=== PATIENT | male | born 1980 | race Caucasian/White ===

== ENCOUNTER 2020-12-26 02:44 | Observation (INO) ==
[2020-12-26 03:13] LABS: Basophils # 0.1 K/mcL (0.0-0.2); Basophils % 0.5 %; Eosinophils # 0.7 K/mcL (0.0-0.6); Eosinophils % 6.4 %; Hematocrit 47.7 % (37.5-50.1); Hemoglobin 15.9 g/dL (12.9-16.9); Immature Granulocytes % 0.3 % (0-4); Lymphocytes # 4.5 K/mcL (0.6-4.6); Lymphocytes % 42.4 %; Mean Corpuscular HGB Conc 33.3 g/dL (31.6-35.5); Mean Corpuscular Hemoglobin 30.5 pg (28.0-33.3); Mean Corpuscular Volume 91.6 fL (83.0-100.0); Mean Platelet Volume 10.5 fL (9.4-12.4); Monocytes # 1.2 K/mcL (0.0-1.3); Monocytes % 11.1 %; Neutrophils # 4.2 K/mcL (1.6-8.9); Platelet Count 240 K/mcL (140-400); Red Blood Count 5.21 M/mcL (4.19-5.50); Red Cell Distribution Width 12.9 % (11.5-14.5); Segmented Neutrophils % 39.3 %; White Blood Count 10.6 K/mcL (4.3-11.1)
[2020-12-26 03:44] LABS: BUN/Creatinine Ratio 13 (6-26); Blood Urea Nitrogen 14 mg/dL (6-20); Calcium 8.7 mg/dL (8.6-10.3); Carbon Dioxide 24 mEq/L (23-29); Chloride 107 mEq/L (98-107); Glucose 131 mg/dL (70-105); Osmolality,Calculated 294 (280-300); Sodium 141 mEq/L (136-145); eGFR For African Americans > 60 (> 60); eGFR For Non-African Americans > 60 (> 60)
[2020-12-26 03:45] LABS: Troponin I < 0.03 ng/mL (< 0.04)
[2020-12-26] MEDS ORDERED: 0.9 % Sodium Chloride 1,000 ML IVC ONE (03:53)
[2020-12-26] MEDS ORDERED: Potassium Chloride 20 MEQ, Lidocaine 1% 2 ML in 0.9 % Sodium Chloride 250 ML IVPB ONE (04:00)
[2020-12-26] MEDS ORDERED: Perflutren Lipid Microsphere 1.3 ML in 0.9 % Sodium Chloride 8.7 ML IVP PRN (04:08)
[2020-12-26] MEDS ORDERED: Ondansetron 4 MG/2 ML VIAL IVP PRN (04:10)
[2020-12-26] MEDS ORDERED: Naloxone 0.4 MG/ML INJ IVP PRN (04:10)
[2020-12-26] MEDS ORDERED: Ringers Solution, Lactated 1,000 ML IVC SCH (04:15)
[2020-12-26 06:57] LABS: Magnesium 1.7 mg/dL (1.6-2.6); Phosphorous 2.5 mg/dL (2.7-4.5)
[2020-12-26 07:06] LABS: Thyroid Stimulating Hormone 0.961 mcIU/mL (0.340-5.600)
[2020-12-26 07:31] LABS: Vitamin B12 397 pg/mL (250-1100)
[2020-12-26] MEDS ORDERED: lisinopriL 20 MG TABLET PO SCH (09:00)
[2020-12-26 09:06] VITALS: BP 156/92
[2020-12-26 11:14] LABS: Folate > 22.3 ng/mL (3.0-16.0)
== END 2020-12-26 10:41 | disposition home or self-care (01) ==
LOC: EMEROOARM 02:44 → CDU 02:44
PROVIDERS: ADMIT Family Medicine; ATTEND Family Medicine